=== PATIENT | female | born 1930 | race Caucasian/White ===

== ENCOUNTER → 2017-12-05 | Outpatient (CLI) | payer MEDICARE ==
[~2017-12-05] MED LIST: AMOCLA500 PO; ASPI325EC PO; Antivert25 MG PO; Bactrim 400-801 EACH PO; CLIN300 PO; CONEST.625 PO; DOCU100 PO; HYDACE10B PO; HYDR1TAB94 PO; MICROZIDE12.5 M1 PO; Norco 10-325 T1 EACH PO; OXYC10TA19 PO; PREMARIN 0.3MG PO; Percocet 5-3251 EACH PO; VANCO 1.51.5 GM/250 IV
== END ==
LOC: LAB SHORT 16:43
DX: N39.0 Urinary tract infection, site not specified (principal)
CPT/HCPCS: 87077; 87086; 87186

== ENCOUNTER 2018-01-01 13:09 | Inpatient (IN) | payer MEDICARE ==
[~2018-01-01] VITALS: Ht 160 cm; Wt 78.0 kg
[~2018-01-01 13:09] MED LIST changes: -AMOCLA500 PO; -Bactrim 400-801 EACH PO; -CLIN300 PO; -CONEST.625 PO; -DOCU100 PO; -Norco 10-325 T1 EACH PO; -OXYC10TA19 PO; -VANCO 1.51.5 GM/250 IV
[2018-01-16] MEDS ORDERED: Norco 10-325 T1 EACH PO (10:30)
[2018-02-13 05:06] LABS: BASOPHILS ABSOLUTE AUTO 0.04 K/mm3 (0.00-0.23); BASOPHILS PERCENT AUTO 0 % (0-2); EOSINOPHILS ABSOLUTE AUTO 0.11 K/mm3 (0.00-0.68); EOSINOPHILS PERCENT AUTO 1 % (0-6); Hematocrit 21.4 % (33.0-51.0); Hemoglobin 6.8 g/dL (11.5-16.0); IMMATURE GRAN ABSOLUTE AUTO 0.05 K/mm3 (0.00-0.10); IMMATURE GRAN PERCENT AUTO 1 % (0-1); LYMPHOCYTES ABSOLUTE AUTO 1.37 K/mm3 (0.84-5.20); LYMPHOCYTES PERCENT AUTO 14 % (21-46); MONOCYTES ABSOLUTE AUTO 0.72 K/mm3 (0.16-1.47); MONOCYTES PERCENT AUTO 7 % (4-13); Mean Corpuscular HGB 29.7 pg (26.0-34.0); Mean Corpuscular HGB Conc 31.8 g/dL (31.5-36.5); Mean Corpuscular Volume 93 fL (80-100); Mean Platelet Volume 9.6 fL (9.1-12.4); NEUTROPHILS ABSOLUTE AUTO 7.86 K/mm3 (1.96-9.15); NEUTROPHILS PERCENT AUTO 77 % (41-73); Platelet Count 187 K/mm3 (150-400); RDW Coefficient Variation 13.4 % (11.7-14.2); RDW Standard Deviation 45.3 fL (35.1-46.3); Red Blood Cell Count 2.29 M/mm3 (3.80-5.20); White Blood Cell Count 10.15 K/mm3 (4.00-11.30)
[2018-02-13 05:17] LABS: Anion Gap 6 mmol/L (6-16); Blood Urea Nitrogen 20 mg/dL (8-24); Bun/Creatinine Ratio 21.8 (12.0-20.0); CO2, Blood 26 mmol/L (21-32); Calcium, Blood 7.3 mg/dL (8.5-10.1); Chloride, Blood 109 mmol/L (98-108); Creatinine, Blood 0.92 mg/dL (0.40-1.00); Glomerular Filtration Rate >60 (60-); Glucose, Blood 103 mg/dL (70-99); Magnesium, Blood 1.7 mg/dL (1.6-2.4); Potassium, Blood 4.5 mmol/L (3.5-5.5); Sodium, Blood 141 mmol/L (136-145)
[2018-02-13 11:00] LABS: Hematocrit 27.4 % (33.0-51.0); Mean Corpuscular HGB Conc 32.8 g/dL (31.5-36.5); Mean Corpuscular Volume 91 fL (80-100); Mean Platelet Volume 9.5 fL (9.1-12.4); Platelet Count 189 K/mm3 (150-400); RDW Coefficient Variation 13.3 % (11.7-14.2); RDW Standard Deviation 44.6 fL (35.1-46.3); White Blood Cell Count 9.67 K/mm3 (4.00-11.30)
[2018-02-13 11:29] LABS: Alanine Aminotransfer (ALT/SGP 13 U/L (12-78); Albumin, Blood 2.5 g/dL (3.4-5.0); Alk Phos 68 U/L (50-136); Anion Gap 6 mmol/L (6-16); Aspartate Aminotrans (AST/SGOT 28 U/L (12-37); Bilirubin, Total 0.9 mg/dL (0.1-1.0); Blood Urea Nitrogen 20 mg/dL (8-24); Bun/Creatinine Ratio 22.2 (12.0-20.0); CO2, Blood 26 mmol/L (21-32); Calcium, Blood 7.6 mg/dL (8.5-10.1); Chloride, Blood 108 mmol/L (98-108); Globulin, Blood 2.6 g/dL (2.2-4.0); Glomerular Filtration Rate >60 (60-); Glucose, Blood 119 mg/dL (70-99); Potassium, Blood 4.2 mmol/L (3.5-5.5); Sodium, Blood 140 mmol/L (136-145); Total Protein, Blood 5.1 g/dL (6.4-8.2)
[2018-02-14] MEDS ORDERED: OXYC10TA19 PO (14:02)
[2018-02-14] MEDS ORDERED: ASPI325EC PO (14:03)
[2018-02-14] MEDS ORDERED: DOCU100 PO (14:04)
== END 2018-02-14 16:16 | disposition home health service (06) | DRG 468 ==
LOC: SURS 02-12 08:51 → PRE IP 02-12 10:30 → SURS 02-12 18:00
PROVIDERS: Orthopaedic Surgery
PROC: 0SP909Z Removal of Liner from Right Hip Joint, Open Approach (ICD-10-PCS; 2018-02-12)
PROC: 0SUA09Z Supplement Right Hip Joint, Acetabular Surface with Liner, Open Approach (ICD-10-PCS; 2018-02-12)
PROC: 0SP90JZ Removal of Synthetic Substitute from Right Hip Joint, Open Approach (ICD-10-PCS; 2018-02-12)
PROC: 0SR90JZ Replacement of Right Hip Joint with Synthetic Substitute, Open Approach (ICD-10-PCS; principal; 2018-02-12 10:30)
PROC: 30233N1 Transfusion of Nonautologous Red Blood Cells into Peripheral Vein, Percutaneous Approach (ICD-10-PCS; 2018-02-13)
DX: T84.050A Periprosthetic osteolysis of internal prosthetic right hip joint, initial encounter (principal); E78.5 Hyperlipidemia, unspecified; I10 Essential (primary) hypertension
CPT/HCPCS: 36415; 36430; 72170; 80048; 80053; 82947; 83735; 85025; 85027; 86850; 86900; 86901; 86923; 87070; 87071; 87075; 87205; 97110; 97116; 97162; 97530; C1713; C1776; G8978; G8979; J0171; J0690; J0735; J1885; J2250; J2795; J3010; J7120; P9016

== ENCOUNTER 2018-03-15 05:55 | Inpatient (IN) | payer MEDICARE ==
[2018-03-14 17:07] LABS: BASOPHILS PERCENT AUTO 1 % (0-2); EOSINOPHILS ABSOLUTE AUTO 0.28 K/mm3 (0.00-0.68); EOSINOPHILS PERCENT AUTO 3 % (0-6); Hematocrit 35.6 % (33.0-51.0); IMMATURE GRAN ABSOLUTE AUTO 0.06 K/mm3 (0.00-0.10); IMMATURE GRAN PERCENT AUTO 1 % (0-1); LYMPHOCYTES ABSOLUTE AUTO 2.24 K/mm3 (0.84-5.20); LYMPHOCYTES PERCENT AUTO 20 % (21-46); MONOCYTES ABSOLUTE AUTO 0.71 K/mm3 (0.16-1.47); MONOCYTES PERCENT AUTO 6 % (4-13); Mean Corpuscular HGB 28.3 pg (26.0-34.0); Mean Corpuscular HGB Conc 30.9 g/dL (31.5-36.5); Mean Corpuscular Volume 92 fL (80-100); Mean Platelet Volume 9.3 fL (9.1-12.4); NEUTROPHILS ABSOLUTE AUTO 7.65 K/mm3 (1.96-9.15); NEUTROPHILS PERCENT AUTO 69 % (41-73); Platelet Count 418 K/mm3 (150-400); RDW Coefficient Variation 13.8 % (11.7-14.2); RDW Standard Deviation 46.3 fL (35.1-46.3); Red Blood Cell Count 3.89 M/mm3 (3.80-5.20); White Blood Cell Count 11.04 K/mm3 (4.00-11.30)
[2018-03-14 17:56] LABS: Bun/Creatinine Ratio 17.2 (12.0-20.0); Calcium, Blood 8.8 mg/dL (8.5-10.1); Creatinine, Blood 0.99 mg/dL (0.40-1.00); Potassium, Blood 4.7 mmol/L (3.5-5.5)
[~2018-03-15] VITALS: Ht 160 cm; Wt 78.4 kg
[~2018-03-15 05:55] MED LIST changes: +DOCU100 PO; +Norco 10-325 T1 EACH PO; +OXYC10TA19 PO
[2018-03-15] MEDS ORDERED: CLIN300 PO ×2 (06:51)
[2018-03-15] MEDS ORDERED: Bactrim 400-801 EACH PO ×2 (06:52)
[2018-03-16 05:00] LABS: BASOPHILS ABSOLUTE AUTO 0.01 K/mm3 (0.00-0.23); BASOPHILS PERCENT AUTO 0 % (0-2); EOSINOPHILS ABSOLUTE AUTO 0.01 K/mm3 (0.00-0.68); EOSINOPHILS PERCENT AUTO 0 % (0-6); Hematocrit 26.8 % (33.0-51.0); Hemoglobin 8.3 g/dL (11.5-16.0); IMMATURE GRAN ABSOLUTE AUTO 0.05 K/mm3 (0.00-0.10); IMMATURE GRAN PERCENT AUTO 0 % (0-1); LYMPHOCYTES ABSOLUTE AUTO 1.19 K/mm3 (0.84-5.20); LYMPHOCYTES PERCENT AUTO 11 % (21-46); MONOCYTES ABSOLUTE AUTO 0.72 K/mm3 (0.16-1.47); MONOCYTES PERCENT AUTO 6 % (4-13); Mean Corpuscular HGB 28.5 pg (26.0-34.0); Mean Corpuscular Volume 92 fL (80-100); Mean Platelet Volume 9.2 fL (9.1-12.4); NEUTROPHILS ABSOLUTE AUTO 9.34 K/mm3 (1.96-9.15); NEUTROPHILS PERCENT AUTO 83 % (41-73); Platelet Count 326 K/mm3 (150-400); RDW Coefficient Variation 13.6 % (11.7-14.2); RDW Standard Deviation 46.1 fL (35.1-46.3); Red Blood Cell Count 2.91 M/mm3 (3.80-5.20); White Blood Cell Count 11.32 K/mm3 (4.00-11.30)
[2018-03-16 05:14] LABS: Bun/Creatinine Ratio 25.9 (12.0-20.0); Calcium, Blood 8.3 mg/dL (8.5-10.1); Creatinine, Blood 0.96 mg/dL (0.40-1.00); Potassium, Blood 4.8 mmol/L (3.5-5.5)
[2018-03-17 12:03] LABS: Vancomycin, Trough 9.3 ug/mL (5.0-10.0)
[2018-03-18 06:49] LABS: Hematocrit 27.9 % (33.0-51.0); Hemoglobin 8.8 g/dL (11.5-16.0)
[2018-03-18 11:41] LABS: Vancomycin, Trough 9.4 ug/mL (5.0-10.0)
[2018-03-21] MEDS ORDERED: VANCO 1.51.5 GM/250 IV (15:36)
== END 2018-03-19 14:54 | disposition home health service (06) | DRG 465 ==
LOC: ORSCMMR 05:55 → ORD 07:30 → ORSCMMR 10:25 → SURS 10:25
PROVIDERS: Orthopaedic Surgery
PROC: 0JBL0ZZ Excision of Right Upper Leg Subcutaneous Tissue and Fascia, Open Approach (ICD-10-PCS; 2018-03-15)
PROC: 02HV33Z Insertion of Infusion Device into Superior Vena Cava, Percutaneous Approach (ICD-10-PCS; principal; 2018-03-15 07:30)
DX: T84.51XA Infection and inflammatory reaction due to internal right hip prosthesis, initial encounter (principal); E78.5 Hyperlipidemia, unspecified; M19.91 Primary osteoarthritis, unspecified site; G47.00 Insomnia, unspecified; Z87.891 Personal history of nicotine dependence; I10 Essential (primary) hypertension
CPT/HCPCS: 36415; 36569; 80048; 80202; 82565; 83735; 85014; 85018; 85025; 86850; 86900; 86901; 87070; 87071; 87075; 87077; 87147; 87186; 87205; 97116; 97161; C1751; C1894; G8978; G8979; G8980; J0171; J0690; J0735; J1100; J1885; J2405; J2795; J3010; J3370; J7050; J7120

== ENCOUNTER 2018-03-20 | Day surgery (SDC) | END 2018-03-20 16:21 | disposition home or self-care (01) ==

== ENCOUNTER 2018-03-22 00:29 | Day surgery (SDC) | payer MEDICARE ==
[~2018-03-22 00:29] MED LIST changes: +Bactrim 400-801 EACH PO; +CLIN300 PO; +VANCO 1.51.5 GM/250 IV
== END 2018-03-22 13:32 | disposition home or self-care (01) ==
LOC: ATC 00:29
DX: T81.4XXA Infection following a procedure, initial encounter (principal)
CPT/HCPCS: 96365; 96366; J3370; J7050

== ENCOUNTER 2018-03-23 14:19 | Day surgery (SDC) | payer MEDICARE ==
[2018-03-23 15:03] LABS: Creatinine, Blood 1.04 mg/dL (0.40-1.00)
== END 2018-03-23 16:58 | disposition home or self-care (01) ==
LOC: ATC 14:19
PROVIDERS: Orthopaedic Surgery
DX: T81.4XXA Infection following a procedure, initial encounter (principal)
CPT/HCPCS: 80202; 82565; 96365; 96366; J3370; J7050

== ENCOUNTER 2018-03-24 14:54 | Day surgery (SDC) | payer MEDICARE | END 2018-03-24 16:50 | disposition home or self-care (01) | LOC: ATC 14:54 | DX: T81.4XXA Infection following a procedure, initial encounter (principal) | CPT/HCPCS: 96365; 96366; J3370; J7050 ==

== ENCOUNTER 2018-03-25 00:10 | Day surgery (SDC) | payer MEDICARE | END 2018-03-25 16:10 | disposition home or self-care (01) | LOC: ATC 00:10 | DX: T81.4XXA Infection following a procedure, initial encounter (principal) | CPT/HCPCS: 96365; 96366; J3370; J7050 ==

== ENCOUNTER 2018-03-26 00:28 | Day surgery (SDC) | payer MEDICARE ==
[2018-03-26 14:21] LABS: Vancomycin, Trough 10.4 ug/mL (5.0-10.0)
== END 2018-03-26 16:18 | disposition home or self-care (01) ==
LOC: ATC 00:28
PROVIDERS: Orthopaedic Surgery
DX: T81.4XXA Infection following a procedure, initial encounter (principal); E78.5 Hyperlipidemia, unspecified; I10 Essential (primary) hypertension
CPT/HCPCS: 80202; 82565; 96365

== ENCOUNTER 2018-03-27 00:26 | Day surgery (SDC) | payer MEDICARE | END 2018-03-27 16:35 | disposition home or self-care (01) | LOC: ATC 00:26 | DX: T81.4XXA Infection following a procedure, initial encounter (principal); Z96.641 Presence of right artificial hip joint | CPT/HCPCS: 96365; J3370; J7050 ==

== ENCOUNTER 2018-03-28 00:17 | Day surgery (SDC) | payer MEDICARE | END 2018-03-28 16:20 | disposition home or self-care (01) | LOC: ATC 00:17 | DX: T81.4XXA Infection following a procedure, initial encounter (principal); E78.5 Hyperlipidemia, unspecified; I10 Essential (primary) hypertension; Z96.641 Presence of right artificial hip joint | CPT/HCPCS: 96365; 96366; J3370; J7050 ==

== ENCOUNTER 2018-03-29 00:14 | Day surgery (SDC) | payer MEDICARE ==
[2018-03-29 15:31] LABS: Creatinine, Blood 0.74 mg/dL (0.40-1.00); Vancomycin, Trough 10.6 ug/mL (5.0-10.0)
== END 2018-03-29 17:30 | disposition home or self-care (01) ==
LOC: ATC 00:14
PROVIDERS: Orthopaedic Surgery
DX: T81.4XXA Infection following a procedure, initial encounter (principal); Z96.641 Presence of right artificial hip joint
CPT/HCPCS: 80202; 82565; J3370; J7050

== ENCOUNTER 2018-03-30 14:59 | Day surgery (SDC) | payer MEDICARE | END 2018-03-30 16:49 | disposition home or self-care (01) | LOC: ATC 14:59 | DX: T81.4XXA Infection following a procedure, initial encounter (principal); Z96.641 Presence of right artificial hip joint | CPT/HCPCS: 96365; 96366; J3370; J7050 ==

== ENCOUNTER 2018-03-31 14:51 | Day surgery (SDC) | payer MEDICARE | END 2018-03-31 16:54 | disposition home or self-care (01) | LOC: ATC 14:51 | DX: T81.4XXA Infection following a procedure, initial encounter (principal); Z96.641 Presence of right artificial hip joint | CPT/HCPCS: 96365; 96366; J3370; J7050 ==

== ENCOUNTER 2018-04-01 00:41 | Day surgery (SDC) | payer MEDICARE ==
[2018-04-01 15:32] LABS: Creatinine, Blood 0.67 mg/dL (0.40-1.00); Vancomycin, Trough 11.8 ug/mL (5.0-10.0)
[2018-04-01 15:51] LABS: BASOPHILS ABSOLUTE AUTO 0.06 K/mm3 (0.00-0.23); BASOPHILS PERCENT AUTO 1 % (0-2); EOSINOPHILS ABSOLUTE AUTO 0.34 K/mm3 (0.00-0.68); EOSINOPHILS PERCENT AUTO 4 % (0-6); Hematocrit 30.6 % (33.0-51.0); Hemoglobin 9.4 g/dL (11.5-16.0); IMMATURE GRAN ABSOLUTE AUTO 0.01 K/mm3 (0.00-0.10); IMMATURE GRAN PERCENT AUTO 0 % (0-1); LYMPHOCYTES ABSOLUTE AUTO 1.63 K/mm3 (0.84-5.20); LYMPHOCYTES PERCENT AUTO 21 % (21-46); MONOCYTES ABSOLUTE AUTO 0.57 K/mm3 (0.16-1.47); MONOCYTES PERCENT AUTO 7 % (4-13); Mean Corpuscular HGB 27.8 pg (26.0-34.0); Mean Corpuscular HGB Conc 30.7 g/dL (31.5-36.5); Mean Corpuscular Volume 91 fL (80-100); Mean Platelet Volume 9.1 fL (9.1-12.4); NEUTROPHILS ABSOLUTE AUTO 5.05 K/mm3 (1.96-9.15); NEUTROPHILS PERCENT AUTO 66 % (41-73); Platelet Count 297 K/mm3 (150-400); RDW Coefficient Variation 13.7 % (11.7-14.2); RDW Standard Deviation 45.2 fL (35.1-46.3); Red Blood Cell Count 3.38 M/mm3 (3.80-5.20); White Blood Cell Count 7.66 K/mm3 (4.00-11.30)
[2018-04-01 16:12] LABS: Anion Gap 10 mmol/L (6-16); Blood Urea Nitrogen 14 mg/dL (8-24); Bun/Creatinine Ratio 18.8 (12.0-20.0); CO2, Blood 26 mmol/L (21-32); Calcium, Blood 8.7 mg/dL (8.5-10.1); Chloride, Blood 106 mmol/L (98-108); Creatinine, Blood 0.74 mg/dL (0.40-1.00); Glomerular Filtration Rate >60 (60-); Glucose, Blood 135 mg/dL (70-99); Potassium, Blood 3.9 mmol/L (3.5-5.5); Sodium, Blood 142 mmol/L (136-145)
== END 2018-04-01 17:25 | disposition home or self-care (01) ==
LOC: ATC 00:41
PROVIDERS: Orthopaedic Surgery
DX: T81.4XXA Infection following a procedure, initial encounter (principal)
CPT/HCPCS: 80048; 80202; 82565; 85025; 96365; J3370; J7050

== ENCOUNTER 2018-04-01 15:38 | Inpatient (IN) | payer MEDICARE ==
[~2018-04-01] VITALS: Ht 160 cm; Wt 88.9 kg
[2018-04-03] MEDS ORDERED: CONEST.625 PO (05:43)
[2018-04-03 06:00] LABS: BASOPHILS ABSOLUTE AUTO 0.05 K/mm3 (0.00-0.23); BASOPHILS PERCENT AUTO 1 % (0-2); EOSINOPHILS PERCENT AUTO 5 % (0-6); Hematocrit 24.2 % (33.0-51.0); Hemoglobin 7.4 g/dL (11.5-16.0); IMMATURE GRAN ABSOLUTE AUTO 0.02 K/mm3 (0.00-0.10); IMMATURE GRAN PERCENT AUTO 0 % (0-1); LYMPHOCYTES PERCENT AUTO 21 % (21-46); MONOCYTES ABSOLUTE AUTO 0.44 K/mm3 (0.16-1.47); MONOCYTES PERCENT AUTO 8 % (4-13); Mean Corpuscular HGB 27.7 pg (26.0-34.0); Mean Corpuscular HGB Conc 30.6 g/dL (31.5-36.5); Mean Corpuscular Volume 91 fL (80-100); Mean Platelet Volume 9.7 fL (9.1-12.4); NEUTROPHILS ABSOLUTE AUTO 3.68 K/mm3 (1.96-9.15); NEUTROPHILS PERCENT AUTO 65 % (41-73); Platelet Count 226 K/mm3 (150-400); RDW Coefficient Variation 13.7 % (11.7-14.2); RDW Standard Deviation 45.4 fL (35.1-46.3); Red Blood Cell Count 2.67 M/mm3 (3.80-5.20); White Blood Cell Count 5.69 K/mm3 (4.00-11.30)
[2018-04-03 06:22] LABS: Magnesium, Blood 1.8 mg/dL (1.6-2.4)
[2018-04-03 06:37] LABS: Anion Gap 6 mmol/L (6-16); Blood Urea Nitrogen 12 mg/dL (8-24); Bun/Creatinine Ratio 15.6 (12.0-20.0); CO2, Blood 27 mmol/L (21-32); Calcium, Blood 7.6 mg/dL (8.5-10.1); Chloride, Blood 109 mmol/L (98-108); Creatinine, Blood 0.77 mg/dL (0.40-1.00); Glomerular Filtration Rate >60 (60-); Glucose, Blood 83 mg/dL (70-99); Sodium, Blood 142 mmol/L (136-145)
[2018-04-05 11:25] LABS: BASOPHILS ABSOLUTE AUTO 0.06 K/mm3 (0.00-0.23); BASOPHILS PERCENT AUTO 1 % (0-2); EOSINOPHILS ABSOLUTE AUTO 0.37 K/mm3 (0.00-0.68); EOSINOPHILS PERCENT AUTO 5 % (0-6); IMMATURE GRAN ABSOLUTE AUTO 0.02 K/mm3 (0.00-0.10); IMMATURE GRAN PERCENT AUTO 0 % (0-1); LYMPHOCYTES ABSOLUTE AUTO 1.57 K/mm3 (0.84-5.20); LYMPHOCYTES PERCENT AUTO 21 % (21-46); MONOCYTES ABSOLUTE AUTO 0.48 K/mm3 (0.16-1.47); MONOCYTES PERCENT AUTO 6 % (4-13); Mean Corpuscular HGB 27.8 pg (26.0-34.0); Mean Corpuscular HGB Conc 31.4 g/dL (31.5-36.5); Mean Platelet Volume 9.2 fL (9.1-12.4); NEUTROPHILS ABSOLUTE AUTO 5.09 K/mm3 (1.96-9.15); NEUTROPHILS PERCENT AUTO 67 % (41-73); Platelet Count 253 K/mm3 (150-400); RDW Standard Deviation 45.4 fL (35.1-46.3); Red Blood Cell Count 3.96 M/mm3 (3.80-5.20); White Blood Cell Count 7.59 K/mm3 (4.00-11.30)
[2018-04-05 11:28] LABS: Mean Corpuscular Volume 88 fL (80-100)
[2018-04-05 11:40] LABS: Anion Gap 9 mmol/L (6-16); Blood Urea Nitrogen 13 mg/dL (8-24); Bun/Creatinine Ratio 17.2 (12.0-20.0); CO2, Blood 25 mmol/L (21-32); Calcium, Blood 8.6 mg/dL (8.5-10.1); Chloride, Blood 109 mmol/L (98-108); Creatinine, Blood 0.75 mg/dL (0.40-1.00); Glomerular Filtration Rate >60 (60-); Glucose, Blood 91 mg/dL (70-99); Potassium, Blood 4.3 mmol/L (3.5-5.5); Sodium, Blood 143 mmol/L (136-145)
[2018-04-06 07:59] LABS: BASOPHILS ABSOLUTE AUTO 0.02 K/mm3 (0.00-0.23); BASOPHILS PERCENT AUTO 0 % (0-2); EOSINOPHILS ABSOLUTE AUTO 0.01 K/mm3 (0.00-0.68); EOSINOPHILS PERCENT AUTO 0 % (0-6); Hematocrit 29.7 % (33.0-51.0); Hemoglobin 8.9 g/dL (11.5-16.0); IMMATURE GRAN ABSOLUTE AUTO 0.04 K/mm3 (0.00-0.10); IMMATURE GRAN PERCENT AUTO 1 % (0-1); LYMPHOCYTES ABSOLUTE AUTO 1.06 K/mm3 (0.84-5.20); LYMPHOCYTES PERCENT AUTO 13 % (21-46); MONOCYTES ABSOLUTE AUTO 0.58 K/mm3 (0.16-1.47); MONOCYTES PERCENT AUTO 7 % (4-13); Mean Corpuscular HGB 28.2 pg (26.0-34.0); Mean Platelet Volume 10.6 fL (9.1-12.4); NEUTROPHILS ABSOLUTE AUTO 6.58 K/mm3 (1.96-9.15); NEUTROPHILS PERCENT AUTO 79 % (41-73); Platelet Count 199 K/mm3 (150-400); RDW Coefficient Variation 13.8 % (11.7-14.2); RDW Standard Deviation 47.2 fL (35.1-46.3); Red Blood Cell Count 3.16 M/mm3 (3.80-5.20); White Blood Cell Count 8.29 K/mm3 (4.00-11.30)
[2018-04-06 08:01] LABS: Anion Gap 9 mmol/L (6-16); Blood Urea Nitrogen 21 mg/dL (8-24); Bun/Creatinine Ratio 24.3 (12.0-20.0); CO2, Blood 22 mmol/L (21-32); Calcium, Blood 7.7 mg/dL (8.5-10.1); Chloride, Blood 111 mmol/L (98-108); Creatinine, Blood 0.87 mg/dL (0.40-1.00); Glomerular Filtration Rate >60 (60-); Glucose, Blood 101 mg/dL (70-99); Magnesium, Blood 1.8 mg/dL (1.6-2.4); Potassium, Blood 4.6 mmol/L (3.5-5.5); Sodium, Blood 142 mmol/L (136-145)
[2018-04-06 08:10] LABS: Mean Corpuscular Volume 94 fL (80-100)
[2018-04-06 12:32] LABS: Vancomycin, Trough 15.2 ug/mL (5.0-10.0)
== END 2018-04-08 15:25 | disposition home or self-care (01) | DRG 481 ==
LOC: PRE IP 04-02 10:30 → SURS 04-02 12:49
PROVIDERS: Orthopaedic Surgery; Pharmacist; Registered Nurse Registered Nurse First Assistant
PROC: 0S9900Z Drainage of Right Hip Joint with Drainage Device, Open Approach (ICD-10-PCS; principal; 2018-04-02 14:30)
DX: T84.51XA Infection and inflammatory reaction due to internal right hip prosthesis, initial encounter (principal); T81.4XXA Infection following a procedure, initial encounter; A49.01 Methicillin susceptible Staphylococcus aureus infection, unspecified site
CPT/HCPCS: 36415; 36430; 51702; 72170; 80048; 80202; 82565; 82947; 83735; 85025; 86850; 86900; 86901; 86923; 94762; 96365; 96366; 97110; 97116; 97161; 97530; C1713; C1751; C1776; G8978; G8979; J0690; J1100; J1885; J2250; J2405; J2997; J3010; J3370; J7030; J7050; J7120; P9016

== ENCOUNTER 2018-04-02 00:48 | Day surgery (SDC) | payer MEDICARE ==
[2018-04-03] MEDS ORDERED: CONEST.625 PO (05:43)
== END 2018-04-02 22:37 | disposition home or self-care (01) ==
LOC: ATC 00:48
DX: T81.4XXA Infection following a procedure, initial encounter (principal)
CPT/HCPCS: J3010; J3370; J7050

== ENCOUNTER 2018-04-09 00:14 | Day surgery (SDC) | payer MEDICARE ==
[~2018-04-09 00:14] MED LIST changes: +CONEST.625 PO
[2018-04-09 14:17] LABS: Creatinine, Blood 0.71 mg/dL (0.40-1.00); Vancomycin, Trough 10.6 ug/mL (5.0-10.0)
== END 2018-04-09 16:10 | disposition home or self-care (01) ==
LOC: ATC 00:14
PROVIDERS: Orthopaedic Surgery
DX: T81.4XXA Infection following a procedure, initial encounter (principal); Z96.641 Presence of right artificial hip joint
CPT/HCPCS: 80202; 82565; 96365; J3370; J7050

== ENCOUNTER 2018-04-11 00:13 | Day surgery (SDC) | payer MEDICARE | END 2018-04-11 15:44 | disposition home or self-care (01) | LOC: ATC 00:13 | DX: T81.4XXA Infection following a procedure, initial encounter (principal) | CPT/HCPCS: 96365; J3370; J7050 ==

== ENCOUNTER 2018-04-15 08:01 | Day surgery (SDC) | payer MEDICARE ==
[2018-04-15 15:21] LABS: Vancomycin, Trough 10.4 ug/mL (5.0-10.0)
== END 2018-04-15 17:20 | disposition home or self-care (01) ==
LOC: ATC 08:01
PROVIDERS: Orthopaedic Surgery
DX: T81.4XXA Infection following a procedure, initial encounter (principal)
CPT/HCPCS: 80202; 82565; 96365; J3370; J7050

== ENCOUNTER 2018-04-16 00:26 | Day surgery (SDC) | payer MEDICARE | END 2018-04-16 16:23 | disposition home or self-care (01) | LOC: ATC 00:26 | DX: T81.4XXA Infection following a procedure, initial encounter (principal) | CPT/HCPCS: 96365; J3370; J7050 ==

== ENCOUNTER 2018-04-17 00:27 | Day surgery (SDC) | payer MEDICARE | END 2018-04-17 15:41 | disposition home or self-care (01) | LOC: ATC 00:27 | DX: T81.4XXA Infection following a procedure, initial encounter (principal) | CPT/HCPCS: 96365; 96366; J3370; J7050 ==

== ENCOUNTER 2018-04-18 00:12 | Day surgery (SDC) | payer MEDICARE ==
[2018-04-18 15:01] LABS: Creatinine, Blood 0.82 mg/dL (0.40-1.00); Vancomycin, Trough 10.9 ug/mL (5.0-10.0)
== END 2018-04-18 17:21 | disposition home or self-care (01) ==
LOC: ATC 00:12
PROVIDERS: Orthopaedic Surgery
DX: T81.4XXA Infection following a procedure, initial encounter (principal)
CPT/HCPCS: 80202; 82565; 96365; 96366; J3370; J7050

== ENCOUNTER 2018-04-20 14:20 | Day surgery (SDC) | payer MEDICARE | END 2018-04-20 16:20 | disposition home or self-care (01) | LOC: ATC 14:20 | DX: T81.4XXA Infection following a procedure, initial encounter (principal) | CPT/HCPCS: 96365 ==

== ENCOUNTER 2018-04-24 14:28 | Day surgery (SDC) | payer MEDICARE | END 2018-04-24 16:08 | disposition home or self-care (01) | LOC: ATC 14:28 | DX: T81.4XXA Infection following a procedure, initial encounter (principal) | CPT/HCPCS: 96365; J3370; J7050 ==

== ENCOUNTER 2018-04-25 00:25 | Day surgery (SDC) | payer MEDICARE ==
[2018-04-25 15:00] LABS: Creatinine, Blood 0.74 mg/dL (0.40-1.00); Vancomycin, Trough 11.2 ug/mL (5.0-10.0)
== END 2018-04-25 16:50 | disposition home or self-care (01) ==
LOC: ATC 00:25
PROVIDERS: Orthopaedic Surgery
DX: T81.4XXA Infection following a procedure, initial encounter (principal)
CPT/HCPCS: 80202; 82565; 96365; J3370; J7050

== ENCOUNTER 2018-04-26 00:27 | Day surgery (SDC) | payer MEDICARE | END 2018-04-26 16:15 | disposition home or self-care (01) | LOC: ATC 00:27 | DX: L08.9 Local infection of the skin and subcutaneous tissue, unspecified (principal) | CPT/HCPCS: 96365; 96366; J3370; J7050 ==

== ENCOUNTER 2018-04-27 14:50 | Day surgery (SDC) | payer MEDICARE | END 2018-04-27 16:49 | disposition home or self-care (01) | LOC: ATC 14:50 | DX: T81.4XXA Infection following a procedure, initial encounter (principal); B95.2 Enterococcus as the cause of diseases classified elsewhere; B95.61 Methicillin susceptible Staphylococcus aureus infection as the cause of diseases classified elsewhere; Z96.641 Presence of right artificial hip joint; Y83.9 Surgical procedure, unspecified as the cause of abnormal reaction of the patient, or of later complication, without mention of misadventure at the time of the procedure | CPT/HCPCS: 96365; 96366; J3370; J7050 ==

== ENCOUNTER 2018-05-01 00:53 | Day surgery (SDC) | payer MEDICARE ==
[2018-05-01 14:53] LABS: Creatinine, Blood 0.78 mg/dL (0.40-1.00); Vancomycin, Trough 13.7 ug/mL (5.0-10.0)
== END 2018-05-01 17:00 | disposition home or self-care (01) ==
LOC: ATC 00:53
PROVIDERS: Internal Medicine
DX: T81.4XXA Infection following a procedure, initial encounter (principal); Z96.641 Presence of right artificial hip joint; L03.115 Cellulitis of right lower limb; B95.2 Enterococcus as the cause of diseases classified elsewhere; B95.61 Methicillin susceptible Staphylococcus aureus infection as the cause of diseases classified elsewhere
CPT/HCPCS: 80202; 82565; 96365; 96366; J3370; J7050

== ENCOUNTER 2018-05-02 00:06 | Day surgery (SDC) | payer MEDICARE | END 2018-05-02 16:20 | disposition home or self-care (01) | LOC: ATC 00:06 | DX: T81.4XXA Infection following a procedure, initial encounter (principal); Z96.641 Presence of right artificial hip joint | CPT/HCPCS: 96365; J3370; J7050 ==

== ENCOUNTER 2018-05-06 00:41 | Day surgery (SDC) | payer MEDICARE | END 2018-05-06 16:24 | disposition home or self-care (01) | LOC: ATC 00:41 | DX: T81.4XXA Infection following a procedure, initial encounter (principal); Z96.641 Presence of right artificial hip joint; E78.5 Hyperlipidemia, unspecified; I10 Essential (primary) hypertension | CPT/HCPCS: 96365; J3370; J7050 ==

== ENCOUNTER 2018-05-07 00:10 | Day surgery (SDC) | payer MEDICARE ==
[2018-05-07 14:53] LABS: Creatinine, Blood 0.79 mg/dL (0.40-1.00); Vancomycin, Trough 12.6 ug/mL (5.0-10.0)
== END 2018-05-07 16:35 | disposition home or self-care (01) ==
LOC: ATC 00:10
PROVIDERS: Orthopaedic Surgery
DX: L08.9 Local infection of the skin and subcutaneous tissue, unspecified (principal)
CPT/HCPCS: 80202; 82565; 96365; J3370; J7050

== ENCOUNTER 2018-05-10 00:27 | Day surgery (SDC) | payer MEDICARE ==
[2018-05-10 15:45] LABS: Creatinine, Blood 0.73 mg/dL (0.40-1.00); Vancomycin, Trough 12.3 ug/mL (5.0-10.0)
== END 2018-05-10 17:31 | disposition home or self-care (01) ==
LOC: ATC 00:27
PROVIDERS: Orthopaedic Surgery
DX: T81.4XXA Infection following a procedure, initial encounter (principal); E78.5 Hyperlipidemia, unspecified; I10 Essential (primary) hypertension; Z96.641 Presence of right artificial hip joint
CPT/HCPCS: 80202; 82565; J3370; J7050

== ENCOUNTER 2018-05-14 00:40 | Day surgery (SDC) | payer MEDICARE | END 2018-05-14 16:31 | disposition home or self-care (01) | LOC: ATC 00:40 | DX: T81.4XXA Infection following a procedure, initial encounter (principal); Z96.641 Presence of right artificial hip joint | CPT/HCPCS: 96365; J3370; J7050 ==

== ENCOUNTER 2018-05-30 00:13 | Day surgery (SDC) | payer MEDICARE | END 2018-05-30 22:36 | disposition home or self-care (01) | LOC: ATC 00:13 | DX: T84.51XA Infection and inflammatory reaction due to internal right hip prosthesis, initial encounter (principal) ==

== ENCOUNTER → 2018-11-14 | Outpatient (CLI) | payer MEDICARE ==
[~2018-11-14] MED LIST changes: +AMOCLA500 PO
== END | disposition home or self-care (01) ==
LOC: LAB SHORT 16:30 → LAB EV 16:30
DX: N39.0 Urinary tract infection, site not specified (principal)
CPT/HCPCS: 87086; 87106